=== PATIENT | female | born 1960 | race Asian ===

== ENCOUNTER → 2023-05-18 | Day surgery (SDC) | payer MEDICARE ==
[~2023-05-18] MED LIST: ALENDRONATE SOD70 MG PO; FISH OIL 1,0001 EAC7; HYOSCYAMINE SULFATE 0.5 MG/ML INJ ONE; LACTATED RINGER'S 1,000 ML ONE; LIDOCAINE HCL 2% LOCAL INJ 5 ML SDV VIAL INJ ONE; METOCLOPRAMIDE HCL 10 MG/2ML VIAL ONE; ONE DAILY FOR1 EAC3; POVIDONE IODINE 0.05% 0.05 % ML PO ONE; PROPOFOL IV EMULSION 10 MG/ML 20 ML VIAL ONE
[2023-05-18 09:20] VITALS: TEMP 97.2
[2023-05-18 09:40] VITALS: BP 105/68; PULSE 77; RESP 18; O2SAT 99
== END | disposition home or self-care (01) ==
LOC: OR 07:54
PROVIDERS: ATTEND Internal Medicine Gastroenterology
DX: Z09 Encounter for follow-up examination after completed treatment for conditions other than malignant neoplasm (principal); K63.5 Polyp of colon; K57.30 Diverticulosis of large intestine without perforation or abscess without bleeding; K64.8 Other hemorrhoids; M81.0 Age-related osteoporosis without current pathological fracture; Z01.810 Encounter for preprocedural cardiovascular examination; Z79.899 Other long term (current) drug therapy
CPT/HCPCS: 45385; 93005; J1980; J2001; J2704; J2765; J7121; 45378